=== PATIENT | female | born 1955 | race Caucasian/White ===

== ENCOUNTER 2018-01-17 20:52 | Observation (INO) | payer MEDICARE, OTHER ==
[2018-01-17 21:37] LABS: Hematocrit 34 % (35-47); Hemoglobin 11.5 g/dl (12.0-16.0); Mean Corpuscular HGB Conc 34 g/dl (31-36); Mean Corpuscular Hemoglobin 30 pg (27-31); Mean Corpuscular Volume 89 fL (80-97); Mean Platelet Volume 6.7 um3 (7.4-10.4); Platelet Count 336 10^3/ul (150-450); Red Blood Count 3.82 10^6/ul (4.0-5.4); Red Cell Distribution Width 15 % (10.5-15); White Blood Count 9.3 10^3/ul (3.5-10.8)
[2018-01-17 21:41] LABS: ABS Basophils 0.1 10^3/ul (0-0.2); ABS Eosinophils 0.1 10^3/ul (0-0.6); ABS Lymphocytes 2.8 10^3/ul (1.0-4.8); ABS Monocytes 0.9 10^3/ul (0-0.8); ABS Neutrophils 5.4 10^3/ul (1.5-7.7); ABS Nucleated RBC 0 10^3/ul; Eosinophil % 1.5 % (0-6); Nucleated Red Blood Cells % 0
[2018-01-17 21:55] LABS: EGFR Non-African American 53.9 (>60)
[2018-01-17 23:04] LABS: Urine Appearance Cloudy; Urine Blood Negative (Negative); Urine Color Yellow; Urine Ketones Negative (Negative); Urine Protein Negative (Negative); Urine Specific Gravity 1.017 (1.010-1.030); Urine Urobilinogen Negative (Negative)
[2018-01-18] MEDS ORDERED: Acetaminophen TAB* 325 MG PO ONE (04:44)
[2018-01-18] MEDS ORDERED: Amoxicillin/Clavulanate TAB* 875 MG PO ONE (05:56)
--- NOTE | 2018-01-18 06:54 | ED ---
Caitlin Loyd Emily, scribed for Nas Ramires MD on 01/17/18 at 2214 . 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 The patient rates the pain 7/10 in severity. Symptoms aggravated by nothing. Symptoms alleviated by nothing. Patient reports abd pain. Pt states that she plans to shoot her neighbor in the foot, and then straight through the heart. - History Of Current Complaint Chief Complaint: EDMentalHealth Time Seen by Provider: 01/17/18 21:13 Hx Obtained From: Patient ?: No Onset/Duration: Sudden Onset Timing: Constant Severity Initially: Mild Severity Currently: Mild Aggravating Factor(s): Nothing Alleviating Factor(s): Nothing Related History: Positive For: Prior Psychiatric Issues Has Homicidal: Reports: Thoughts, With A Plan - Allergies/Home Medications Allergies/Adverse Reactions: Allergies Allergy/AdvReac Type Severity Reaction Status Date / Time chlorpromazine Allergy Hives Verified 01/17/18 22:04 [From Thorazine] shellfish derived Allergy Difficulty Verified 01/17/18 22:04 Breathing/Wheezing Home Medications: Home Medications Acetaminophen TAB* [Tylenol TAB*] 650 mg PO Q4H PRN 01/17/18 [History Confirmed 01/17/18] Albuterol HFA INHALER* [Ventolin HFA Inhaler*] 2 puff INH Q4H PRN 01/17/18 [ History Confirmed 01/17/18] Aspirin EC TAB* [Ecotrin EC Low Dose 81 MG*] 81 mg PO DAILY 01/17/18 [History Confirmed 01/17/18] Atorvastatin* [Lipitor*] 40 mg PO DAILY 01/17/18 [History Confirmed 01/17/18] Calcium Carbonate/Vitamin D3 [Calcium 600+D High Potenc] 1 tab PO BID 01/17/18 [ History Confirmed 01/17/18] Docusate CAP* [Colace Cap*] 100 mg PO BEDTIME 01/17/18 [History Confirmed ] Ergocalciferol CAP* [Drisdol CAP*] 50,000 unit PO Q7D 01/17/18 [History Confirmed 01/17/18] Gabapentin CAP(*) [Neurontin 300 CAP(*)] 600 mg PO BID 01/17/18 [History Confirmed 01/17/18] Gabapentin CAP(*) [Neurontin 300 CAP(*)] 900 mg PO BEDTIME 01/17/18 [History Confirmed 01/17/18] Methocarbamol TAB* [Robaxin 500 MG TAB*] 1,500 mg PO TID PRN 01/17/18 [History Confirmed 01/17/18] [place]-3 Fatty Acids (Nf) [Fish Oil (NF)] 1,000 mg PO BID 01/17/18 [History Confirmed 01/17/18] Omeprazole CAP* [Prilosec CAP* 20 MG] 40 mg PO QAM 01/17/18 [History Confirmed 01/17/18] Polyethylene Glycol 3350* [Miralax*] 17 gm PO DAILY PRN 01/17/18 [History Confirmed 01/17/18] Prazosin CAP* [Minipress CAP*] 3 mg PO BEDTIME 01/17/18 [History Confirmed 01/17] Ranitidine TAB (NF) [Zantac TAB (NF)] 150 mg PO BEDTIME 01/17/18 [History Confirmed 01/17/18] Tiotropium CAP.INH* [Spiriva CAP.INH*] 1 cap.inh INH DAILY 01/17/18 [History Confirmed 01/17/18] amLODIPine TAB* [Norvasc 5 mg TAB*] 10 mg PO DAILY 01/17/18 [History Confirmed 01/17/18] cloNIDine TAB* [Catapres 0.1 MG TAB*] 0.1 mg PO Q8H PRN 01/17/18 [History Confirmed 01/17/18] glipiZIDE TAB* [Glucotrol TAB*] 20 mg PO BID 01/17/18 [History Confirmed ] hydrOXYzine HCL TAB* [Atarax TAB 50 MG *] 50 mg PO TID PRN MDD 3 tabs 01/17/18 [ History Confirmed 01/17/18] PMH/Surg Hx/FS Hx/Imm Hx Previously Healthy: No Cardiovascular History: Reports: Hx Hypertension Respiratory History: Reports: Hx Chronic Obstructive Pulmonary Disease (COPD) Psychiatric History: Reports: Hx Anxiety, Hx Depression - Surgical History Surgery Procedure, Year, and Place: cholecystectomy Infectious Disease History: No Infectious Disease History: Denies: Traveled Outside the [place] in Last 30 Days - Family History Known Family History: Positive: Cardiac Disease, Hypertension - Social History Occupation: Disabled Lives: With Family Alcohol Use: None Hx Substance Use: Yes Substance Use Type: Reports: Marijuana Substance Use Comment - Amount & Last Used: one month Hx Tobacco Use: Yes Smoking Status (MU): Heavy Every Day Tobacco Smoker Review of Systems Positive: Abdominal Pain Psychological: Other - Positive HI All Other Systems Reviewed And Are Negative: Yes Physical Exam - Summary Physical Exam Summary: VITAL SIGNS: Reviewed. GENERAL: ~Patient is a well-developed and nourished female who is lying comfortable in the stretcher. Patient is not in any acute respiratory distress. HEAD AND FACE: No signs of trauma. No ecchymosis, hematomas or skull depressions. No sinus tenderness. EYES: PERRLA, EOMI x 2, No injected conjunctiva, no nystagmus. EARS: Hearing grossly intact. Ear canals and tympanic membranes are within normal limits. MOUTH: Oropharynx within normal limits. NECK: Supple, trachea is midline, no adenopathy, no JVD, no carotid bruit, no c- spine tenderness, neck with full ROM. CHEST: Symmetric, no tenderness at palpation LUNGS: Clear to auscultation bilaterally. No wheezing or crackles. CVS: Regular rate and rhythm, S1 and S2 present, no murmurs or gallops appreciated. ABDOMEN: Soft, non-tender. No signs of distention. No rebound no guarding, and no masses palpated. Bowel sounds are normal. EXTREMITIES: FROM in all major joints, no edema, no cyanosis or clubbing. NEURO: Alert and oriented x 3. No acute neurological deficits. Speech is normal and follows commands. SKIN: Dry and warm Triage Information Reviewed: Yes Vital Signs On Initial Exam: Initial Vitals Temp Pulse Resp BP Pulse Ox 98.2 F 103 20 142/76 96 01/17/18 20:57 01/17/18 20:57 01/17/18 20:57 01/17/18 20:57 01/17/18 20:57 Vital Signs Reviewed: Yes Diagnostics - Vital Signs Vital Signs Temp Pulse Resp BP Pulse Ox 01/17/18 20:57 98.2 F 103 20 142/76 96 - Laboratory Lab Results: Lab Results 01/17/18 01/17/18 Range/Units 21:31 21:31 WBC 9.3 (3.5-10.8) 10^3/ul RBC 3.82 L (4.0-5.4) 10^6/ul Hgb 11.5 L (12.0-16.0) g/dl Hct 34 L (35-47) % MCV 89 (80-97) fL MCH 30 (27-31) pg MCHC 34 (31-36) g/dl RDW 15 (10.5-15) % Plt Count 336 (150-450) 10^3/ul MPV 6.7 L (7.4-10.4) um3 Neut % (Auto) 58.0 (38-83) % Lymph % (Auto) 30.0 (25-47) % [place] % (Auto) 9.6 H (0-7) % Eos % (Auto) 1.5 (0-6) % Baso % (Auto) 0.9 (0-2) % Absolute Neuts (auto) 5.4 (1.5-7.7) 10^3/ul Absolute Lymphs (auto) 2.8 (1.0-4.8) 10^3/ul Absolute Monos (auto) 0.9 H (0-0.8) 10^3/ul Absolute Eos (auto) 0.1 (0-0.6) 10^3/ul Absolute Basos (auto) 0.1 (0-0.2) 10^3/ul Absolute Nucleated RBC 0 10^3/ul Nucleated RBC % 0 Sodium 139 (139-145) mmol/L Potassium 3.4 L (3.5-5.0) mmol/L Chloride 103 (101-111) mmol/L Carbon Dioxide 26 (22-32) mmol/L Anion Gap 10 (2-11) mmol/L BUN 17 (6-24) mg/dL Creatinine 1.03 H (0.51-0.95) mg/dL Est GFR ( Amer) 69.4 (>60) Est GFR (Non-Af Amer) 53.9 (>60) BUN/Creatinine Ratio 16.5 (8-20) Glucose 151 H (70-100) mg/dL Calcium 10.0 (8.6-10.3) mg/dL Total Bilirubin 0.30 (0.2-1.0) mg/dL AST 30 (13-39) U/L ALT 31 (7-52) U/L Alkaline Phosphatase 81 (34-104) U/L Total Protein 7.1 (6.4-8.9) g/dL Albumin 3.9 (3.2-5.2) g/dL Globulin 3.2 (2-4) g/dL Albumin/Globulin Ratio 1.2 (1-3) TSH Pending Salicylates < 2.50 (<30) mg/dL Acetaminophen < 15 mcg/mL Serum Alcohol < 10 (<10) mg/dL Result Diagrams: 01/17/18 21:31 01/17/18 21:31 Lab Statement: Any lab studies that have been ordered have been reviewed, and results considered in the medical decision making process. - CT CT Abdomen and Pelvis CT Interpretation Completed By: Radiologist - Abdomen and Pelvis CT reveals, per radiologist, haziness in the fat surrounding the duodenum suggests duodenitis. ED physician has reviewed this radiology report. Re-Evaluation - Re-Evaluation First Eval Re-Evaluation Time: 04:42 Change: Unchanged Comment: The patient is now reporting diffuse abd pain (that began 2 weeks ago) . Upon exam, the abdomen is distended and diffusely tender. No other symptoms reported at this time. 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 Pt also reports diffuse abd pain. Abdomen and Pelvis CT reveals, per radiologist, haziness in the fat surrounding the duodenum suggests duodenitis. The patient will recieve Augmentin for this. The patient will be signed out to Dr. Marie upon shift change pending MHE. The patient is agreeable with this plan. - Differential Dx/Clinical Impression Provider Diagnosis: Duodenitis, Psychosis Discharge - Sign-Out/Discharge Documenting (check all that apply): Sign-Out Patient Signing out patient TO: Ankit Marie - Sign out upon shift change pending MHE - Discharge Plan Condition: Stable Referrals: Galen Washington MD [Primary Care Provider] - The documentation as recorded by the Caitlin cazares Emily accurately reflects the service I personally performed and the decisions made by me, Nas Ramires MD.
--- NOTE | 2018-01-18 07:48 | RAD ---
CLINICAL HISTORY: Abdominal pain COMPARISON: None TECHNIQUE: Multiple contiguous axial CT scans were obtained of the abdomen and pelvis, without intravenous contrast enhancement. Coronal and sagittal multiplanar reformations are submitted for review. Oral contrast was not administered. FINDINGS: The study is limited by the lack of intravenous contrast. This limits evaluation of the solid organs and vasculature. LUNG BASES: There is a calcified granuloma of the left lower lobe. LIVER: The liver is diffusely low in attenuation compared to the spleen. There are no focal hepatic parenchymal masses. The liver measures 20 cm in long axis. BILE DUCTS: There is no intrahepatic or extrahepatic biliary dilatation. GALLBLADDER: The gallbladder is not visualized. Surgical clips are noted in the gallbladder fossa. PANCREAS: There is mild stranding of the fat along the pancreatic head and duodenum. SPLEEN: Normal in size and appearance. UPPER GI TRACT: Evaluation of the gastrointestinal tract is limited by incomplete gastric distention. There is mild stranding of the fat along the second and third stages of the duodenum SMALL BOWEL AND MESENTERY: The small bowel is normal in contour, course, and caliber. There is no obstruction or dilatation. COLON: The colon is normal in contour, course, caliber. There is no pericolonic inflammatory change. The appendix is not visualized. There is postsurgical change to the proximal colon. ADRENALS: Normal bilaterally. KIDNEYS: The kidneys are normal in shape, size, contour, and axis. There is no hydronephrosis or nephrolithiasis. BLADDER: The bladder is smooth in contour. PELVIC ORGANS: The uterus and adnexa are grossly normal for technique. AORTA: There is calcific atherosclerotic disease of the abdominal aorta and its branches, without aneurysmal dilatation IVC: Unremarkable LYMPH NODES: There is no lymphadenopathy by size criteria. ABDOMINAL WALL: There is no evidence for abdominal wall hernia. BONES AND SOFT TISSUES: There are mild diffuse degenerative changes. OTHER: None IMPRESSION: 1. MILD INFLAMMATORY CHANGE ALONG THE SECOND AND THIRD STAGES OF THE DUODENUM AND PANCREATIC HEAD. THE DIFFERENTIAL INCLUDES PRIMARY INFECTIOUS OR INFLAMMATORY PROCESS OF THE DUODENUM, THOUGH EARLY PANCREATITIS MAY GIVE A SIMILAR APPEARANCE. 2. HEPATOMEGALY WITH FATTY INFILTRATION OF THE LIVER.
[2018-01-18] MEDS ORDERED: oxyCODONE TAB* 5 MG TAB PO ONE (08:19)
--- NOTE | 2018-01-18 08:26 | PN ---
ED Flex Patient Progress Note Subjective: This is a 62 year-old F who is pending admission to [facility] secondary to ____SI/HI . Pt reports ab pain w/ "queesiness". Her lipase was found to be elevated at 140 and she had duodenal inflammation on CT (per [facility]). Final read finds same findings, stating this could be inflammation, infection or early signs of pancreatitis. Pt admits to a h/o pancreatitis as well as colon CA w/ partial resection. Denies vomiting, diarrhea. Had a constipated BM last night and drank mild which "tasted good". Objective: Vitals: Most recent vital signs documented below. Lying on stretcher, Alert and oriented x3. Heart: rrr S1/S2 Lungs: CTA, breathing easily AB: distended, diffuse TTP, no rebounding Integ: well defined purpuric area over ab just Rt of umbilicus Assessment: 1) SI/HI 2) Ab pain Plan: 1) Pending psychiatric admit. will follow up daily _while in ED____. 2) Duodenitis w/ pancreatic inflammation at the head. Infection vs. pancreatitis. Will repeat labs. Vitals are stable this morning and w/o fever. Upon recheck she is sleeping after eating all of her breakfast w/o difficulty per nursing. Discussed w/ Dr. Marie. Vital Signs Temp Pulse Resp BP Pulse Ox 98.1 F 91 20 163/80 96 01/17/18 23:31 01/17/18 23:31 01/17/18 23:31 01/17/18 23:31 01/17/18 23:31 Lab Results - Entire Visit 01/17/18 01/17/18 01/17/18 22:50 22:50 21:31 WBC RBC Hgb Hct MCV MCH MCHC RDW Plt Count MPV Neut % (Auto) Lymph % (Auto) [place] % (Auto) Eos % (Auto) Baso % (Auto) Absolute Neuts (auto) Absolute Lymphs (auto) Absolute Monos (auto) Absolute Eos (auto) Absolute Basos (auto) Absolute Nucleated RBC Nucleated RBC % Sodium 139 Potassium 3.4 L Chloride 103 Carbon Dioxide 26 Anion Gap 10 BUN 17 Creatinine 1.03 H Est GFR ( Amer) 69.4 Est GFR (Non-Af Amer) 53.9 BUN/Creatinine Ratio 16.5 Glucose 151 H Calcium 10.0 Total Bilirubin 0.30 AST 30 ALT 31 Alkaline Phosphatase 81 Total Protein 7.1 Albumin 3.9 Globulin 3.2 Albumin/Globulin Ratio 1.2 Amylase 58 Lipase 140 H TSH 1.73 Urine Color Yellow Urine Appearance Cloudy Urine pH 6.0 Ur Specific [place] 1.017 Urine Protein Negative Urine Ketones Negative Urine Blood Negative Urine Nitrate Negative Urine Bilirubin Negative Urine Urobilinogen Negative Ur Leukocyte Esterase Negative Urine Glucose Negative Salicylates < 2.50 Urine Opiates Screen None detected Acetaminophen < 15 Ur Barbiturates Screen None detected Ur Phencyclidine Scrn None detected Ur Amphetamines Screen None detected U Benzodiazepines Scrn None detected Urine Cocaine Screen None detected U Cannabinoids Screen Presumptive positive A Serum Alcohol < 10 01/17/18 21:31 WBC 9.3 RBC 3.82 L Hgb 11.5 L Hct 34 L MCV 89 MCH 30 MCHC 34 RDW 15 Plt Count 336 MPV 6.7 L Neut % (Auto) 58.0 Lymph % (Auto) 30.0 [place] % (Auto) 9.6 H Eos % (Auto) 1.5 Baso % (Auto) 0.9 Absolute Neuts (auto) 5.4 Absolute Lymphs (auto) 2.8 Absolute Monos (auto) 0.9 H Absolute Eos (auto) 0.1 Absolute Basos (auto) 0.1 Absolute Nucleated RBC 0 Nucleated RBC % 0 Sodium Potassium Chloride Carbon Dioxide Anion Gap BUN Creatinine Est GFR ( Amer) Est GFR (Non-Af Amer) BUN/Creatinine Ratio Glucose Calcium Total Bilirubin AST ALT Alkaline Phosphatase Total Protein Albumin Globulin Albumin/Globulin Ratio Amylase Lipase TSH Urine Color Urine Appearance Urine pH Ur Specific [place] Urine Protein Urine Ketones Urine Blood Urine Nitrate Urine Bilirubin Urine Urobilinogen Ur Leukocyte Esterase Urine Glucose Salicylates Urine Opiates Screen Acetaminophen Ur Barbiturates Screen Ur Phencyclidine Scrn Ur Amphetamines Screen U Benzodiazepines Scrn Urine Cocaine Screen U Cannabinoids Screen Serum Alcohol
[2018-01-18 08:47] LABS: ABS Basophils 0.1 10^3/ul (0-0.2); ABS Eosinophils 0.2 10^3/ul (0-0.6); ABS Lymphocytes 1.6 10^3/ul (1.0-4.8); ABS Monocytes 0.6 10^3/ul (0-0.8); ABS Neutrophils 5.7 10^3/ul (1.5-7.7); ABS Nucleated RBC 0 10^3/ul; Eosinophil % 2.3 % (0-6); Hematocrit 34 % (35-47); Hemoglobin 11.6 g/dl (12.0-16.0); Lymphocyte % 19.1 % (25-47); Mean Corpuscular HGB Conc 34 g/dl (31-36); Mean Corpuscular Hemoglobin 30 pg (27-31); Mean Corpuscular Volume 89 fL (80-97); Mean Platelet Volume 6.9 um3 (7.4-10.4); Nucleated Red Blood Cells % 0; Platelet Count 336 10^3/ul (150-450); Red Blood Count 3.87 10^6/ul (4.0-5.4); Red Cell Distribution Width 15 % (10.5-15); White Blood Count 8.2 10^3/ul (3.5-10.8)
[2018-01-18] MEDS ORDERED: Aspirin 81 mg CHEW TAB* 81 MG TAB.CHEW PO ONE (11:16)
--- NOTE | 2018-01-18 12:09 | RAD ---
INDICATION: Chest pain COMPARISON: None TECHNIQUE: Single AP portable view of the chest was obtained. FINDINGS: Image quality is compromised due to the relative inferiority of a portable chest x-ray. The heart and mediastinum exhibit normal size and contour. The lungs are grossly clear. There is no evidence of a large pleural effusion. Visualized bones are normal for the patient's age. IMPRESSION: No radiographic evidence for acute cardiopulmonary abnormality on this portable chest x-ray.
[2018-01-18 12:35] LABS: INR 0.86 (0.77-1.02)
[2018-01-18] MEDS ORDERED: Iohexol 350* (CONTRAST) 500 ML MDV IV ONE (13:25)
[2018-01-18] MEDS ORDERED: Iodixanol* (CONTRAST) 320 MG/ML 100 ML SDV IV ONE (14:10)
[2018-01-18] MEDS ORDERED: LORazepam INJ* 2 MG/ML 1 ML VIAL IV PUSH ONE ×2 (14:26→15:24)
[2018-01-18] MEDS ORDERED: Nitroglycerin TAB 0.4 MG* 0.4 MG TAB SL ONE (14:55)
[2018-01-18] MEDS ORDERED: LORazepam INJ* 2 MG/ML 1 ML VIAL IVPB ONE (15:00)
--- NOTE | 2018-01-18 15:37 | RAD ---
Indication: Chest pain, neck pain. Contrast: Administered 80.1 ml of VISAPAQUE 320 mg/ml CTA of the chest performed after IV contrast administration. Coronal and sagittal reconstructed images were obtained. The origins of the great vessels are unremarkable. Specifically the left subclavian artery is patent. The aorta demonstrates no evidence of aortic dissection. Atherosclerosis is noted. No filling defects in the pulmonary arteries are noted to suggest pulmonary embolus. No significant mediastinal or hilar adenopathy is noted. The heart demonstrates no pericardial effusion. The trachea and major bronchi appear patent. The lung olsen demonstrate no evidence of alveolar consolidation. There is some scarring noted in the right middle lobe. No pleural fluid is identified. The liver demonstrates diffuse decrease in density consistent with hepatic steatosis. The visualized adrenal glands, left kidney spleen and pancreas are grossly unremarkable although limited in evaluation. The axilla and breast demonstrates no evidence of abnormal masses. IMPRESSION: No evidence of thoracic aortic dissection or aneurysmal dilatation. The left subclavian artery is widely patent. No pulmonary embolus is noted. Scarring in the right middle lobe. Likely hepatic steatosis.
[2018-01-18] MEDS ORDERED: Albuterol 2.5 MG/3 ML NEB.SOL* (0.083%) INH PRN (15:47)
[2018-01-18] MEDS ORDERED: Al Hydrox/Mg Hydrox/Simet LIQ* 30 ML UDC PO PRN (15:47)
[2018-01-18] MEDS ORDERED: Morphine VIAL* 4 MG/ML VIAL (1 ml vial) IV PRN (15:47)
[2018-01-18] MEDS ORDERED: Ondansetron 40 MG VIAL* 2 MG/ML 20 ML VIAL IV PRN (15:47)
[2018-01-18] MEDS ORDERED: Magnesium Hydroxide LIQ* 30 ML UDC PO PRN (15:47)
[2018-01-18] MEDS ORDERED: Polyethylene Glycol 3350* 17 GM PACKET PO PRN (15:56)
[2018-01-18] MEDS ORDERED: Albuterol HFA INHALER* 8 gm MDI INH PRN (15:56)
[2018-01-18] MEDS ORDERED: Dextrose 50% Syringe 50 ML* 25 GM/50 ML SYRINGE IV PUSH PRN (15:58)
[2018-01-18] MEDS: NS 0.9% 1000 ML* 1,000 ML IV SCH (17:26)
[2018-01-18] MEDS: Nitroglycerin TAB 0.4 MG* 0.4 MG TAB SL PRN ×2 (18:15→18:25)
[2018-01-18] MEDS: Amoxicillin/Clavulanate TAB* 875 MG PO SCH ×2 (18:31→20:38)
[2018-01-18] MEDS: hydrOXYzine HCL TAB* 50 MG PO PRN (18:31)
[2018-01-18] MEDS: Acetaminophen TAB* 325 MG PO PRN (18:31)
[2018-01-18] MEDS: Insulin LISPRO* 1 UNITS UNIT SUBCUT SCH ×2 (18:39→20:39)
[2018-01-18] MEDS: cloNIDine TAB* 0.1 MG PO PRN (20:14)
[2018-01-18] MEDS: Docusate CAP* 100 MG PO SCH (20:38)
[2018-01-18] MEDS: Prazosin CAP* 1 MG PO SCH (20:38)
[2018-01-18] MEDS: Gabapentin CAP(*) 300 MG PO SCH (20:38)
[2018-01-18] MEDS: Heparin VIAL(*) 5000 UNITS/ML VIAL (FIVE THOUSAND) SUBCUT SCH (20:40)
--- NOTE | 2018-01-18 20:54 | HP ---
CC: Galen Washington MD * ADMISSION HISTORY AND PHYSICAL: DATE OF ADMISSION: 01/18/18 PATIENT OF: Alison Marvin MD PRIMARY CARE PHYSICIAN: Galen Washington MD, I assume from [facility]. ATTENDING HOSPITALIST: Dr. Alison Marvin.* (DICTATED BY YOHAN MCCLURE) CHIEF COMPLAINT: 1. Suicidal ideation. 2. Chest pain. HISTORY OF PRESENT ILLNESS: Mrs. Rodriguez is a 62-year-old female who carries past medical history significant for hypertension, diabetes mellitus, and psychiatric disorder who presented to the emergency room at [facility] last night with complaints of suicidal ideation. The patient notes that she had the thought of hurting her neighbor and she was planned to "shoot her" in the foot and then straight through her heart and then she also threatened to hurt herself. She presented with a known psychiatric history as well as anxiety and depression for which she has been on medication in the past. She was awaiting mental health evaluation in emergency room until this morning when she suddenly developed acute onset of chest pain. She described it as sharp and dull pain localized to her mid sternum, appears to be worse with deep inspiration and sometimes radiate to her back, but denies any dizziness, headache, weakness, diaphoresis, or palpitation. She has never had any similar chest pain in the past. She had laboratory workup done in the ED that showed elevated troponin of 0.12 on the second draw after it was 0.01 on the first 2 hours earlier. Her EKG showed no significant ST changes. She did not complain of any shortness of breath; however, a CTA of the chest was done to rule out any possibility of pulmonary embolism and thankfully was negative. She was evaluated by the hospitalist team and she continued to have some intermittent chest pain, but described as less severe at this point. She has never had any cardiac history before. Most of her records were done at [facility] and she actually resides in [place] and comes to [facility] in [place] to get medical care since it is "a better hospital." She also has a history of COPD since she has been a smoker with 2 packs per day for a long time for which she takes nebulizers at home. Given her acute onset of chest pain and elevated troponin, we were asked to evaluate the patient for possible admission to telemetry for observation and to rule out acute coronary syndrome. PAST MEDICAL HISTORY: As mentioned above, significant for: 1. Hypertension. 2. COPD. 3. Anxiety and depression. 4. Diabetes mellitus. 5. GERD. 6. Obesity. 7. Chronic constipation. PAST SURGICAL HISTORY: Significant for: 1. Cholecystectomy. 2. She also has a history of colon cancer for which she had sigmoid colectomy with colostomy and then followed by colostomy reversal. CURRENT MEDICATIONS: Her medications at home include: 1. Tylenol 650 mg p.o. q.4 hours as needed for pain. 2. Ventolin MDI inhaler 2 puffs q.4 hours as needed for shortness of breath. 3. Norvasc 10 mg p.o. daily. 4. Aspirin 81 mg p.o. daily. 5. Lipitor 40 mg p.o. daily. 6. Calcium carbonate with vitamin C 1 tablet p.o. b.i.d. 7. Catapres 0.1 mg p.o. q.8 hours. 8. Colace 100 mg p.o. b.i.d. 9. Drisdol 50,000 units p.o. daily. 10. Gabapentin 900 mg p.o. q.h.s. 11. Gabapentin 600 mg p.o. b.i.d. 12. Glipizide 20 mg p.o. b.i.d. 13. Atarax 50 mg p.o. t.i.d. 14. Robaxin 1500 mg p.o. t.i.d. 15. [place]-3 fatty acids 1000 mg p.o. b.i.d. 16. Prilosec 40 mg p.o. q.a.m. 17. MiraLAX 17 g p.o. daily. 18. Minipress 3 mg p.o. q.h.s. 19. Zantac 150 mg p.o. q.h.s. 20. Spiriva inhaler 18 mcg 1 inhalation daily. ALLERGIES: She is allergic to SHELLFISH and . FAMILY HISTORY: She reports family history of MD in her maternal side as well as history of cancer in her dad, not sure what type. SOCIAL HISTORY: The patient is a current smoker, smokes 2 packs per day. Denies alcohol intake and she admits smoking marijuana on occasions. Healthcare proxy is carried by her friend, Celia Martinez. REVIEW OF SYSTEMS: A 14-point review of systems was obtained and all pertinent positive and negative findings were mentioned in the HPI, otherwise all other systems were negative. PHYSICAL EXAMINATION GENERAL: She is morbidly obese upper middle-aged female in no acute distress or discomfort at the time of admission. VITAL SIGNS: Vitals revealed blood pressure of 175/114, pulse of 87, respirations of 20, O2 sat of 96% on room air, and temperature of 99.4. HEENT: Head is normocephalic, atraumatic. Sclerae anicteric. PERRLA. EOMs intact. Oropharynx is pink and moist. NECK: Supple. Trachea midline. No cervical adenopathy, thyromegaly, or JVD. LUNGS: Clear to auscultation bilaterally. There are decreased breath sounds throughout but no wheezing or rhonchi noted. HEART: Regular rate and rhythm. Normal S1 and S2 without rubs, murmurs, or gallops. BACK: With normal curvature. No CVA tenderness. ABDOMEN: Round and obese. There is no tenderness, distention. No hernias, masses, or hepatosplenomegaly. There is a left lower quadrant scar from prior colostomy that appears to be well healed as well as a lower midline incision that is well healed. RECTAL: Exam deferred at this time. EXTREMITIES: Without cyanosis, clubbing, or edema. NEUROLOGIC: Grossly intact. She is alert, oriented and cooperative. She expressed normal mood. No flat affect and she expressed no desire to hurt self anymore. Her tongue is midline and sensory neuro is grossly intact. DIAGNOSTIC STUDIES/LAB DATA: CBC with white count of 8000, hemoglobin 11.6, hematocrit 34, and platelets of 336. Her D-dimer was elevated at 560. Chemistry panel with sodium of 138, potassium 3.5, chloride 106, BUN 16, creatinine 0.9, glucose of 220. Lactic acid 1.1. Magnesium 2.0. LFTs within normal limits. Lipase slightly elevated at 87 and her serum alcohol is less than 10. C-reactive protein at 14 and troponin first draw is 0.01, which is rapidly elevated at 0.12 and await the third drawing in another half an hour. ACCESSORY DIAGNOSTIC DATA: As mentioned above, the patient had abdominal CT scan earlier this morning with no evidence of free air, colitis; however, it showed some duodenal inflammatory changes. CTA of the chest ruled out possibility of any PE. IMPRESSION: A 62-year-old female with past medical history significant for hypertension, hyperlipidemia, diabetes mellitus, anxiety and depression, tobacco abuse as well as substance abuse in the past who was awaiting mental health evaluation in the emergency room when she suddenly developed a chest pain with elevated troponin and will be admitted for observation to rule out acute coronary syndrome. ASSESSMENT AND PLAN: 1. Chest pain. The patient will be admitted to the telemetry unit for observation and for serial troponin. We will obtain repeat EKG in the morning as well as a stress test. The patient has never had any history of myocardial infarction in the past, never had any echocardiogram or a stress test done. She had an EKG done occasionally at the [facility] in [place], but reports are not available at the time of dictation. She appears to be clinically stable and we will keep close monitor of her. 2. Hypertension. We will continue her home medication. 3. Chronic obstructive pulmonary disease. We will maintain her on albuterol inhaler as well as nebulizer and continue her Spiriva as well. 4. Diabetes mellitus. We will hold her glipizide and start her on lispro per sliding scale with meals and at night. 5. Suicidal ideation. I have reviewed that and talked to the patient who expressed no desire to hurt self or others at this point. I did add a consult request for the psychiatric evaluation and I did call the psych unit to confirm that the patient will be seen by a provider and for the time being we will provide her with a private room with one-to-one observation given her psychiatric history. We will also maintain her on her lorazepam. 6. Hyperlipidemia: We will continue her Lipitor. 7. DVT prophylaxis: The patient is at high risk. We will keep her on subcu heparin. 8. Code status: She is a full code. TIME SPENT: I spent 60 minutes admitting this patient with greater than 50% spent on [id number] conversation obtaining history, performing exam, and explaining plan of care. I have discussed the case with Dr. Marvin who agreed to the plan. YOHAN MCCLURE [id number]/[facility] #: [id number] KATERINE
[2018-01-18] MEDS ORDERED: Gabapentin CAP(*) 300 MG PO SCH (21:00)
[2018-01-18] MEDS ORDERED: hydrALAZINE IV* 20 MG/ML VIAL IV SLOW PU PRN (21:18)
[2018-01-19] MEDS: NS 0.9% 1000 ML* 1,000 ML IV SCH (03:19)
[2018-01-19 05:47] LABS: ABS Basophils 0 10^3/ul (0-0.2); ABS Eosinophils 0.1 10^3/ul (0-0.6); ABS Lymphocytes 2.1 10^3/ul (1.0-4.8); ABS Monocytes 0.7 10^3/ul (0-0.8); ABS Nucleated RBC 0 10^3/ul; Eosinophil % 1.1 % (0-6); Hematocrit 33 % (35-47); Hemoglobin 11.3 g/dl (12.0-16.0); Lymphocyte % 26.6 % (25-47); Mean Corpuscular HGB Conc 34 g/dl (31-36); Mean Corpuscular Hemoglobin 30 pg (27-31); Mean Corpuscular Volume 89 fL (80-97); Nucleated Red Blood Cells % 0.1; Platelet Count 315 10^3/ul (150-450); Red Blood Count 3.75 10^6/ul (4.0-5.4); Red Cell Distribution Width 15 % (10.5-15); White Blood Count 7.9 10^3/ul (3.5-10.8)
[2018-01-19] MEDS: Heparin VIAL(*) 5000 UNITS/ML VIAL (FIVE THOUSAND) SUBCUT SCH ×4 (06:03→21:03)
[2018-01-19 06:06] LABS: EGFR Non-African American 96.9 (>60)
[2018-01-19] MEDS: Tiotropium CAP.INH* CAP.INH/18 MCG (USE ORDER SET !) INH SCH (07:50)
[2018-01-19] MEDS ORDERED: Potassium Chlor TAB* 20 MEQ TAB.ER PO ONE (07:50)
[2018-01-19] MEDS: Omeprazole CAP* 20 MG PO SCH (07:51)
[2018-01-19] MEDS: hydrOXYzine HCL TAB* 50 MG PO PRN ×2 (07:52→14:01)
[2018-01-19] MEDS: Nitroglycerin TAB 0.4 MG* 0.4 MG TAB SL PRN (07:52)
[2018-01-19] MEDS: Amoxicillin/Clavulanate TAB* 875 MG PO SCH ×2 (07:52→21:03)
[2018-01-19] MEDS: amLODIPine TAB* 5 MG PO SCH (07:52)
[2018-01-19] MEDS: Atorvastatin* 40 MG TAB PO SCH (07:52)
[2018-01-19] MEDS: Acetaminophen TAB* 325 MG PO PRN ×3 (07:52→18:22)
[2018-01-19] MEDS: Aspirin EC TAB* 81 MG TAB.EC PO SCH (07:52)
[2018-01-19] MEDS: Gabapentin CAP(*) 300 MG PO SCH ×3 (08:33→21:02)
[2018-01-19] MEDS: Insulin LISPRO* 1 UNITS UNIT SUBCUT SCH ×4 (08:34→20:57)
[2018-01-19] MEDS ORDERED: Spiriva Inhaler DEVICE* 1 EACH DEVICE INH ONE (09:00)
[2018-01-19] MEDS ORDERED: Regadenoson* 0.4 MG/5 ML SYRINGE ONE (10:10)
--- NOTE | 2018-01-19 12:02 | RAD ---
Edited for charges. INDICATION: Chest pain, shortness of breath, diabetes, hypertension, obesity. COMPARISON: No relevant prior exams available on the [facility] [place] for comparison. TECHNIQUE: 10.800 mCi of Tc-99m Myoview were administered IV. SPECT images of the heart were obtained. Later on the same day. Under the direction of Dr. Viramontes, the patient was given an IV injection of a pharmacologic stress agent. Subsequently, the patient was given an IV injection of 25.400 mCi Tc-99m Myoview. SPECT images of the heart were obtained and a gated wall motion study was performed. FINDINGS: Gated wall motion images were obtained at stress and demonstrate wall motion to be within normal limits. The calculated left ventricular ejection fraction is 61 % at stress. Estimated LEFT ventricular end diastolic volume is 80 mL. TID 1.15. Based on review of the attenuation corrected and non corrected images the distribution of radiopharmaceutical within the myocardium on the stress and rest images is within normal limits. No fixed or reversible regions of hypoperfusion evident. IMPRESSION: 1. No evidence for stress induced myocardial ischemia or presence of an infarct. 2. Normal left ventricular wall motion and ejection fraction. ASSESSMENT: Low risk based on nuclear portion. Based on imaging criteria from ACC/AHA 2002 Guideline Update for the Management of Patients With Chronic Stable Angina Table 23. Noninvasive Risk Stratification. MTDD
--- NOTE | 2018-01-19 12:57 | PN ---
Subjective Date of Service: 01/19/18 Interval History: Patient reports she understands her conversation with the psychiatrist. She denies suicidal ideation. Currently she reports her abdomen is hurting her but relates it secondary to not eating all day d/t the stress test. She reports she was hospitalized with pancreatitis within the last year and has had some bouts of chronic pancreatitis. She denies any recent hx of ETOH abuse but states she use to drink heavily 30 years ago. She reports epigastric to LUQ intermittent colicky diffuse pain. No Nausea. Denies bloating, reports normal consistency bowel movement reporting dark stool today with streaks of "blood". Denies hx of bloody stools. No nausea. Reports she feels hungry. Objective Active Medications: Acetaminophen (Tylenol Tab*) 650 mg PO Q4H PRN PRN Reason: FEVER/PAIN Last Admin: 01/19/18 07:52 Dose: 650 mg Al Hydrox/Mg Hydrox/Simethicone (Maalox Plus*) 30 ml PO Q6H PRN PRN Reason: INDIGESTION Last Admin: 01/19/18 07:51 Dose: 30 ml Albuterol (Ventolin 2.5 Mg/3 Ml Neb.Gerda*) 2.5 mg INH [id number] AWAKE PRN PRN Reason: sob/wheezing Albuterol (Ventolin Hfa Inhaler*) 2 puff INH Q4H PRN PRN Reason: SOB/WHEEZING Amlodipine Besylate (Norvasc Tab*) 10 mg PO DAILY [facility] Last Admin: 01/19/18 07:52 Dose: 10 mg Amoxicillin/Clavulanate Potassium (Augmentin Tab*) 875 mg PO BID [facility] Last Admin: 01/19/18 07:52 Dose: 875 mg Aspirin (Aspirin Ec Tab*) 81 mg PO DAILY [facility] Last Admin: 01/19/18 07:52 Dose: 81 mg Atorvastatin Calcium (Lipitor*) 40 mg PO DAILY [facility] Last Admin: 01/19/18 07:52 Dose: 40 mg Clonidine HCl (Catapres Tab*) 0.1 mg PO Q8H PRN PRN Reason: ANXIETY Last Admin: 01/18/18 20:14 Dose: 0.1 mg Dextrose (D50w Syringe 50 Ml*) 12.5 gm IV PUSH .FOR FS < 60 - SS PRN PRN Reason: FS < 60 Docusate Sodium (Colace Cap*) 100 mg PO BEDTIME [facility] Last Admin: 01/18/18 20:38 Dose: 100 mg Gabapentin (Neurontin Cap(*)) 900 mg PO BEDTIME [facility] Last Admin: 01/18/18 20:38 Dose: 900 mg Gabapentin (Neurontin Cap(*)) 600 mg PO 0900,1500 [facility] Last Admin: 01/19/18 08:33 Dose: 600 mg Heparin Sodium (Porcine) (Heparin Vial(*)) 5,000 units SUBCUT Q8HR [facility] Last Admin: 01/19/18 06:03 Dose: 5,000 units Hydralazine HCl (Apresoline Iv*) 5 mg IV SLOW PU Q6H PRN PRN Reason: BLOOD PRESSURE Hydroxyzine HCl (Atarax Tab*) 50 mg PO TID PRN PRN Reason: ANXIETY Last Admin: 01/19/18 07:52 Dose: 50 mg Sodium Chloride (Ns 0.9% 1000 Ml*) 1,000 mls @ 100 mls/hr IV PER RATE [facility] Last Admin: 01/19/18 03:19 Dose: 100 mls/hr Insulin Human Lispro (Humalog*) 0 units SUBCUT ACHS [facility] PRN Reason: Protocol Last Admin: 01/19/18 08:34 Dose: Not Given Magnesium Hydroxide (Milk Of Magnesia Liq*) 30 ml PO Q4H PRN PRN Reason: CONSTIPATION Methocarbamol (Robaxin Tab*) 1,500 mg PO TID PRN PRN Reason: SPASMS Morphine Sulfate (Morphine Vial*) 2 mg IV Q1H PRN PRN Reason: PAIN Last Admin: 01/18/18 20:14 Dose: 2 mg Omeprazole (Prilosec Cap*) 40 mg PO 0730 [facility] Last Admin: 01/19/18 07:51 Dose: 40 mg Ondansetron HCl (Zofran 40 Mg Vial*) 4 mg IV Q4H PRN PRN Reason: NAUSEA/VOMITING Last Admin: 01/18/18 18:14 Dose: 4 mg Polyethylene Glycol/Electrolytes (Miralax*) 17 gm PO DAILY PRN PRN Reason: CONSTIPATION Prazosin HCl (Minipress Cap*) 3 mg PO BEDTIME [facility] Last Admin: 01/18/18 20:38 Dose: 3 mg Tiotropium [place] (Spiriva Cap.Inh*) 1 cap INH DAILY [facility] Last Admin: 01/19/18 07:50 Dose: 1 cap Vital Signs - 8 hr 01/19/18 01/19/18 01/19/18 07:22 07:27 07:51 Temperature 98.5 F Pulse Rate 82 Respiratory 20 18 Rate Blood Pressure 152/75 145/90 (mmHg) O2 Sat by Pulse 98 Oximetry 01/19/18 01/19/18 01/19/18 07:52 08:33 10:30 Temperature Pulse Rate Respiratory 14 18 17 Rate Blood Pressure (mmHg) O2 Sat by Pulse Oximetry Oxygen Devices in Use Now: None Appearance: 62 yo chronically ill female laying in bed A+O in NAD Eyes: No Scleral Icterus, PERRLA Ears/Nose/Mouth/Throat: NL Teeth, Lips, Gums, Mucous Membranes Moist Neck: NL Appearance and Movements; NL JVP Respiratory: Symmetrical Chest Expansion and Respiratory Effort, Clear to Auscultation Cardiovascular: NL Sounds; No Murmurs; No JVD, RRR, No Edema Abdominal: NL Sounds; No Tenderness; No Distention, - Skin: No Rash or Ulcers, No Nodules or Sclerosis Neurological: Alert and Oriented x 3, NL Sensation, NL Muscle Strength and Tone Lines/Tubes/Other Access: Clean, Dry and Intact Peripheral IV Nutrition: Taking PO's Result Diagrams: 01/19/18 05:15 01/19/18 05:16 Additional Lab and Data: Lab Results 01/17/18 01/17/18 Range/Units 21:31 21:31 WBC 9.3 (3.5-10.8) 10^3/ul RBC 3.82 L (4.0-5.4) 10^6/ul Hgb 11.5 L (12.0-16.0) g/dl Hct 34 L (35-47) % MCV 89 (80-97) fL MCH 30 (27-31) pg MCHC 34 (31-36) g/dl RDW 15 (10.5-15) % Plt Count 336 (150-450) 10^3/ul MPV 6.7 L (7.4-10.4) um3 Neut % (Auto) 58.0 (38-83) % Lymph % (Auto) 30.0 (25-47) % [place] % (Auto) 9.6 H (0-7) % Eos % (Auto) 1.5 (0-6) % Baso % (Auto) 0.9 (0-2) % Absolute Neuts (auto) 5.4 (1.5-7.7) 10^3/ul Absolute Lymphs (auto) 2.8 (1.0-4.8) 10^3/ul Absolute Monos (auto) 0.9 H (0-0.8) 10^3/ul Absolute Eos (auto) 0.1 (0-0.6) 10^3/ul Absolute Basos (auto) 0.1 (0-0.2) 10^3/ul Absolute Nucleated RBC 0 10^3/ul Nucleated RBC % 0 Sodium 139 (139-145) mmol/L Potassium 3.4 L (3.5-5.0) mmol/L Chloride 103 (101-111) mmol/L Carbon Dioxide 26 (22-32) mmol/L Anion Gap 10 (2-11) mmol/L BUN 17 (6-24) mg/dL Creatinine 1.03 H (0.51-0.95) mg/dL Est GFR ( Amer) 69.4 (>60) Est GFR (Non-Af Amer) 53.9 (>60) BUN/Creatinine Ratio 16.5 (8-20) Glucose 151 H (70-100) mg/dL Calcium 10.0 (8.6-10.3) mg/dL Total Bilirubin 0.30 (0.2-1.0) mg/dL AST 30 (13-39) U/L ALT 31 (7-52) U/L Alkaline Phosphatase 81 (34-104) U/L Total Protein 7.1 (6.4-8.9) g/dL Albumin 3.9 (3.2-5.2) g/dL Globulin 3.2 (2-4) g/dL Albumin/Globulin Ratio 1.2 (1-3) TSH Pending Salicylates < 2.50 (<30) mg/dL Acetaminophen < 15 mcg/mL Serum Alcohol < 10 (<10) mg/dL Assess/Plan/Problems-Billing Assessment: 62 yo female with PMH of significant mental health disorder with multiple hospitalizations/psych hospitalization mostly in [facility] with dx of bipolar, borderline personality disorder, dissociative identity disorder, PTSD, cannabis use disorder, major depressive disorder, hx of pancreatitis, HTN , Tobacco abuse, DMII, GERD, Obesity, chronic constipation, cholecystectomy, hx of colon ca with sigmoid colectomy and colostomy follwed by a colostomy reversal who presented to the ED with c/o of homicidal and suicidal ideations then c/o of epigastric/chest pain admitted to medical team for chest pain r/o ACS - Patient Problems (1) Chest pain Comment: - Troponins peaked at 0.12 then trended down, suspect demand ischemia - Nuclear cardiac stress test low risk. - Supsect cardiac discomfort is possible chronic pancreatitis (2) Chronic pancreatitis Comment: - Possible chronic pancreatitis? CT showing "mild inflammatory change along the second and third stages of the duodenum and pancreatic head. The differential includes infectcious or inflammatory process of the duodenum". - Does not appear to be infectious. ER started her on Augmentin. No fevers or leukocytosis, CRP mildly elevated. Plan to start diet and see how she tolerates. If she has pain will ask for GI consult. - per patients hospitalized for pancreatitis within the year, suspect this could be chronic pancreatitis. (3) Suicidal ideation Comment: - appreciate consult by Dr.Ehmke Wilver [place] to DC 1:1, he does not feel that she is suicidal and this was secondary gain and personality disorder. Please see full dictated note for details. (4) HTN (hypertension) Comment: - continue home medications, blood pressure better controlled. Continue hydralizine prn (5) Diabetes 1.5, managed as type 2 Comment: - FSBG ACHS with lispro SS (6) DVT prophylaxis Comment: HSQ (7) Full code status Status and Disposition: OBV
[2018-01-19] MEDS: Methocarbamol TAB* 500 MG PO PRN ×2 (14:00→22:34)
[2018-01-19] MEDS: cloNIDine TAB* 0.1 MG PO PRN (14:00)
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
[2018-01-19] MEDS: Docusate CAP* 100 MG PO SCH (21:03)
[2018-01-19] MEDS: Prazosin CAP* 1 MG PO SCH (21:03)
[2018-01-20] MEDS: hydrOXYzine HCL TAB* 50 MG PO PRN ×2 (02:51→12:47)
[2018-01-20] MEDS: Acetaminophen TAB* 325 MG PO PRN (02:51)
[2018-01-20] MEDS: Heparin VIAL(*) 5000 UNITS/ML VIAL (FIVE THOUSAND) SUBCUT SCH (05:51)
[2018-01-20 06:15] LABS: ABS Basophils 0.1 10^3/ul (0-0.2); ABS Eosinophils 0.2 10^3/ul (0-0.6); ABS Lymphocytes 2.2 10^3/ul (1.0-4.8); ABS Monocytes 0.5 10^3/ul (0-0.8); ABS Neutrophils 3.6 10^3/ul (1.5-7.7); ABS Nucleated RBC 0 10^3/ul; Eosinophil % 2.7 % (0-6); Hematocrit 34 % (35-47); Hemoglobin 11.5 g/dl (12.0-16.0); Lymphocyte % 33.3 % (25-47); Mean Corpuscular HGB Conc 34 g/dl (31-36); Mean Corpuscular Hemoglobin 30 pg (27-31); Mean Corpuscular Volume 89 fL (80-97); Mean Platelet Volume 6.9 um3 (7.4-10.4); Nucleated Red Blood Cells % 0; Platelet Count 316 10^3/ul (150-450); Red Blood Count 3.85 10^6/ul (4.0-5.4); Red Cell Distribution Width 15 % (10.5-15); White Blood Count 6.5 10^3/ul (3.5-10.8)
[2018-01-20 06:29] LABS: EGFR Non-African American 76.6 (>60)
[2018-01-20] MEDS: Tiotropium CAP.INH* CAP.INH/18 MCG (USE ORDER SET !) INH SCH (08:34)
[2018-01-20] MEDS: Insulin LISPRO* 1 UNITS UNIT SUBCUT SCH (09:02)
[2018-01-20] MEDS: Aspirin EC TAB* 81 MG TAB.EC PO SCH (09:03)
[2018-01-20] MEDS: Amoxicillin/Clavulanate TAB* 875 MG PO SCH (09:03)
[2018-01-20] MEDS: amLODIPine TAB* 5 MG PO SCH (09:04)
[2018-01-20] MEDS: Omeprazole CAP* 20 MG PO SCH (09:04)
[2018-01-20] MEDS: Atorvastatin* 40 MG TAB PO SCH (09:04)
[2018-01-20] MEDS: Gabapentin CAP(*) 300 MG PO SCH (09:04)
--- NOTE | 2018-01-20 11:16 | DCNOTE ---
Subjective Date of Service: 01/20/18 Interval History: Patient reports she feels much better today and feels ready for discharge. no further epigastric pain or chest pain. reports she has a good appetite. no abdominal pain. She said she spoke with her PCP office today and plans to follow up soon. She reports she has a mental health case manager helping her set up an apartment in [place] and hopes to move to the area. Objective Active Medications: Acetaminophen (Tylenol Tab*) 650 mg PO Q4H PRN PRN Reason: FEVER/PAIN Last Admin: 01/20/18 02:51 Dose: 650 mg Al Hydrox/Mg Hydrox/Simethicone (Maalox Plus*) 30 ml PO Q6H PRN PRN Reason: INDIGESTION Last Admin: 01/19/18 07:51 Dose: 30 ml Albuterol (Ventolin 2.5 Mg/3 Ml Neb.Gerda*) 2.5 mg INH [id number] AWAKE PRN PRN Reason: sob/wheezing Albuterol (Ventolin Hfa Inhaler*) 2 puff INH Q4H PRN PRN Reason: SOB/WHEEZING Amlodipine Besylate (Norvasc Tab*) 10 mg PO DAILY [facility] Last Admin: 01/20/18 09:04 Dose: 10 mg Amoxicillin/Clavulanate Potassium (Augmentin Tab*) 875 mg PO BID [facility] Last Admin: 01/20/18 09:03 Dose: 875 mg Aspirin (Aspirin Ec Tab*) 81 mg PO DAILY [facility] Last Admin: 01/20/18 09:03 Dose: 81 mg Atorvastatin Calcium (Lipitor*) 40 mg PO DAILY [facility] Last Admin: 01/20/18 09:04 Dose: 40 mg Clonidine HCl (Catapres Tab*) 0.1 mg PO Q8H PRN PRN Reason: ANXIETY Last Admin: 01/19/18 14:00 Dose: 0.1 mg Dextrose (D50w Syringe 50 Ml*) 12.5 gm IV PUSH .FOR FS < 60 - SS PRN PRN Reason: FS < 60 Docusate Sodium (Colace Cap*) 100 mg PO BEDTIME [facility] Last Admin: 01/19/18 21:03 Dose: 100 mg Gabapentin (Neurontin Cap(*)) 900 mg PO BEDTIME [facility] Last Admin: 01/19/18 21:02 Dose: 900 mg Gabapentin (Neurontin Cap(*)) 600 mg PO 0900,1500 [facility] Last Admin: 01/20/18 09:04 Dose: 600 mg Heparin Sodium (Porcine) (Heparin Vial(*)) 5,000 units SUBCUT Q8HR [facility] Last Admin: 01/20/18 05:51 Dose: 5,000 units Hydralazine HCl (Apresoline Iv*) 5 mg IV SLOW PU Q6H PRN PRN Reason: BLOOD PRESSURE Hydroxyzine HCl (Atarax Tab*) 50 mg PO TID PRN PRN Reason: ANXIETY Last Admin: 01/20/18 02:51 Dose: 50 mg Insulin Human Lispro (Humalog*) 0 units SUBCUT ACHS [facility] PRN Reason: Protocol Last Admin: 01/20/18 09:02 Dose: 2 units Magnesium Hydroxide (Milk Of Magnesia Liq*) 30 ml PO Q4H PRN PRN Reason: CONSTIPATION Methocarbamol (Robaxin Tab*) 1,500 mg PO TID PRN PRN Reason: SPASMS Last Admin: 01/19/18 22:34 Dose: 1,500 mg Morphine Sulfate (Morphine Vial*) 2 mg IV Q1H PRN PRN Reason: PAIN Last Admin: 01/18/18 20:14 Dose: 2 mg Omeprazole (Prilosec Cap*) 40 mg PO 0730 [facility] Last Admin: 01/20/18 09:04 Dose: 40 mg Ondansetron HCl (Zofran 40 Mg Vial*) 4 mg IV Q4H PRN PRN Reason: NAUSEA/VOMITING Last Admin: 01/18/18 18:14 Dose: 4 mg Polyethylene Glycol/Electrolytes (Miralax*) 17 gm PO DAILY PRN PRN Reason: CONSTIPATION Prazosin HCl (Minipress Cap*) 3 mg PO BEDTIME [facility] Last Admin: 01/19/18 21:03 Dose: 3 mg Tiotropium [place] (Spiriva Cap.Inh*) 1 cap INH DAILY [facility] Last Admin: 01/20/18 08:34 Dose: 1 cap Vital Signs - 8 hr 01/20/18 01/20/18 01/20/18 03:58 07:23 08:36 Temperature 98.0 F 98.3 F Pulse Rate 90 80 97 Respiratory 18 16 16 Rate Blood Pressure 143/83 146/82 (mmHg) O2 Sat by Pulse 95 99 98 Oximetry 01/20/18 09:04 Temperature Pulse Rate Respiratory 18 Rate Blood Pressure (mmHg) O2 Sat by Pulse Oximetry Oxygen Devices in Use Now: None Appearance: 62 yo female A+O x3 in NAD. appropriate Eyes: No Scleral Icterus, PERRLA Ears/Nose/Mouth/Throat: NL Teeth, Lips, Gums, Mucous Membranes Moist Neck: NL Appearance and Movements; NL JVP Respiratory: Symmetrical Chest Expansion and Respiratory Effort, Clear to Auscultation Cardiovascular: NL Sounds; No Murmurs; No JVD, RRR, No Edema Abdominal: NL Sounds; No Tenderness; No Distention Extremities: No Edema, No Clubbing, Cyanosis Skin: No Rash or Ulcers, No Nodules or Sclerosis Neurological: Alert and Oriented x 3, NL Sensation, NL Gait, NL Muscle Strength and Tone Lines/Tubes/Other Access: Clean, Dry and Intact Peripheral IV Nutrition: Taking PO's Result Diagrams: 01/20/18 06:01 01/20/18 06:01 Additional Lab and Data: Lab Results 01/17/18 01/17/18 Range/Units 21:31 21:31 WBC 9.3 (3.5-10.8) 10^3/ul RBC 3.82 L (4.0-5.4) 10^6/ul Hgb 11.5 L (12.0-16.0) g/dl Hct 34 L (35-47) % MCV 89 (80-97) fL MCH 30 (27-31) pg MCHC 34 (31-36) g/dl RDW 15 (10.5-15) % Plt Count 336 (150-450) 10^3/ul MPV 6.7 L (7.4-10.4) um3 Neut % (Auto) 58.0 (38-83) % Lymph % (Auto) 30.0 (25-47) % Sampson % (Auto) 9.6 H (0-7) % Eos % (Auto) 1.5 (0-6) % Baso % (Auto) 0.9 (0-2) % Absolute Neuts (auto) 5.4 (1.5-7.7) 10^3/ul Absolute Lymphs (auto) 2.8 (1.0-4.8) 10^3/ul Absolute Monos (auto) 0.9 H (0-0.8) 10^3/ul Absolute Eos (auto) 0.1 (0-0.6) 10^3/ul Absolute Basos (auto) 0.1 (0-0.2) 10^3/ul Absolute Nucleated RBC 0 10^3/ul Nucleated RBC % 0 Sodium 139 (139-145) mmol/L Potassium 3.4 L (3.5-5.0) mmol/L Chloride 103 (101-111) mmol/L Carbon Dioxide 26 (22-32) mmol/L Anion Gap 10 (2-11) mmol/L BUN 17 (6-24) mg/dL Creatinine 1.03 H (0.51-0.95) mg/dL Est GFR ( Amer) 69.4 (>60) Est GFR (Non-Af Amer) 53.9 (>60) BUN/Creatinine Ratio 16.5 (8-20) Glucose 151 H (70-100) mg/dL Calcium 10.0 (8.6-10.3) mg/dL Total Bilirubin 0.30 (0.2-1.0) mg/dL AST 30 (13-39) U/L ALT 31 (7-52) U/L Alkaline Phosphatase 81 (34-104) U/L Total Protein 7.1 (6.4-8.9) g/dL Albumin 3.9 (3.2-5.2) g/dL Globulin 3.2 (2-4) g/dL Albumin/Globulin Ratio 1.2 (1-3) TSH Pending Salicylates < 2.50 (<30) mg/dL Acetaminophen < 15 mcg/mL Serum Alcohol < 10 (<10) mg/dL Microbiology and Other Data: Microbiology 01/19/18 15:10 Stool Occult Blood (ZAINA) - Final Stool Assess/Plan/Problems-Billing Assessment: 62 yo female with PMH of significant mental health disorder with multiple hospitalizations/psych hospitalization mostly in [facility] with dx of bipolar, borderline personality disorder, dissociative identity disorder, PTSD, cannabis use disorder, major depressive disorder, hx of pancreatitis, HTN , Tobacco abuse, DMII, GERD, Obesity, chronic constipation, cholecystectomy, hx of colon ca with sigmoid colectomy and colostomy follwed by a colostomy reversal who presented to the ED with c/o of homicidal and suicidal ideations then c/o of epigastric/chest pain admitted to medical team for chest pain r/o ACS - Patient Problems (1) Chest pain Comment: - Troponins peaked at 0.12 then trended down, suspect demand ischemia - Nuclear cardiac stress test low risk. - Supsect cardiac discomfort is possible chronic pancreatitis (2) Chronic pancreatitis Comment: - Possible chronic pancreatitis? CT showing "mild inflammatory change along the second and third stages of the duodenum and pancreatic head. The differential includes infectcious or inflammatory process of the duodenum". - Does not appear to be infectious. ER started her on Augmentin. No fevers or leukocytosis, CRP mildly elevated. Tolerating diet well. Side consulted GI - with no abdominal pain and tolerating PO less likely duodenitis. Augmentin not recommended. Possible chronic pancreatitis. No pain today and tolerating diet well. I discussed with her [facility]. - per patients hospitalized for pancreatitis within the year. Distant hx of ETOH abuse 30+ years ago - (3) Suicidal ideation Comment: - appreciate consult by - ok to DC 1:1, he does not feel that she is suicidal and this was secondary gain and personality disorder. Please see full dictated note for details. (4) HTN (hypertension) Comment: - continue home medications, blood pressure better controlled. (5) Diabetes 1.5, managed as type 2 Comment: - restart home meds on DC (6) DVT prophylaxis Comment: HSQ (7) Full code status Status and Disposition: OBV. Plan for DC to home today with f/u with [facility]
[2018-01-20 12:08] VITALS: BP 146/80
--- NOTE | 2018-01-20 13:24 | CONSULT ---
Identification - Patient Identification Reason for Psychiatric Consultation: Suicidal Ideation -: Patient is a 62 year old, F admitted on 01/18/18. - MHU Identification Employment Status: Disabled Hx Psychiatric Hospitalization: Yes History - Objective HPI: Gena is seen for follow up today and is in good spirits, looking to go home to [place]. She continues to deny SI or HI and has no acute complaints. She is getting a ride home from her friend Priya and says that she is going to have her [facility] case consultant assist her in finding an apartment in [place], because "The hospital is so much better here." Lab Results: Laboratory Tests 01/18/18 01/18/18 01/18/18 17:09 18:18 20:02 WBC RBC Hgb Hct MCV MCH MCHC RDW Plt Count MPV Neut % (Auto) Lymph % (Auto) [place] % (Auto) Eos % (Auto) Baso % (Auto) Absolute Neuts (auto) Absolute Lymphs (auto) Absolute Monos (auto) Absolute Eos (auto) Absolute Basos (auto) Absolute Nucleated RBC Nucleated RBC % Sodium Potassium Chloride Carbon Dioxide Anion Gap BUN Creatinine Est GFR ( Amer) Est GFR (Non-Af Amer) BUN/Creatinine Ratio Glucose POC Glucose (mg/dL) 262 H 200 H Calcium Troponin I 0.00 C-Reactive Protein Triglycerides Cholesterol LDL Cholesterol HDL Cholesterol Lipase 01/19/18 01/19/18 01/19/18 05:15 05:16 07:25 WBC 7.9 RBC 3.75 L Hgb 11.3 L Hct 33 L MCV 89 MCH 30 MCHC 34 RDW 15 Plt Count 315 MPV 7.0 L Neut % (Auto) 62.7 Lymph % (Auto) 26.6 [place] % (Auto) 9.2 H Eos % (Auto) 1.1 Baso % (Auto) 0.4 Absolute Neuts (auto) 5.0 Absolute Lymphs (auto) 2.1 Absolute Monos (auto) 0.7 Absolute Eos (auto) 0.1 Absolute Basos (auto) 0 Absolute Nucleated RBC 0 Nucleated RBC % 0.1 Sodium 137 L Potassium 3.0 L Chloride 107 Carbon Dioxide 22 Anion Gap 8 BUN 12 Creatinine 0.62 Est GFR ( Amer) 124.6 Est GFR (Non-Af Amer) 96.9 BUN/Creatinine Ratio 19.4 Glucose 132 H POC Glucose (mg/dL) 143 H Calcium 8.1 L Troponin I 0.00 C-Reactive Protein Triglycerides 182 Cholesterol 109 LDL Cholesterol 36 HDL Cholesterol 36.8 Lipase 01/19/18 01/19/18 01/19/18 11:43 16:28 20:16 WBC RBC Hgb Hct MCV MCH MCHC RDW Plt Count MPV Neut % (Auto) Lymph % (Auto) [place] % (Auto) Eos % (Auto) Baso % (Auto) Absolute Neuts (auto) Absolute Lymphs (auto) Absolute Monos (auto) Absolute Eos (auto) Absolute Basos (auto) Absolute Nucleated RBC Nucleated RBC % Sodium Potassium Chloride Carbon Dioxide Anion Gap BUN Creatinine Est GFR ( Amer) Est GFR (Non-Af Amer) BUN/Creatinine Ratio Glucose POC Glucose (mg/dL) 143 H 139 H 130 H Calcium Troponin I C-Reactive Protein Triglycerides Cholesterol LDL Cholesterol HDL Cholesterol Lipase 01/20/18 01/20/18 01/20/18 06:01 06:01 07:56 WBC 6.5 RBC 3.85 L Hgb 11.5 L Hct 34 L MCV 89 MCH 30 MCHC 34 RDW 15 Plt Count 316 MPV 6.9 L Neut % (Auto) 54.8 Lymph % (Auto) 33.3 [place] % (Auto) 8.1 H Eos % (Auto) 2.7 Baso % (Auto) 1.1 Absolute Neuts (auto) 3.6 Absolute Lymphs (auto) 2.2 Absolute Monos (auto) 0.5 Absolute Eos (auto) 0.2 Absolute Basos (auto) 0.1 Absolute Nucleated RBC 0 Nucleated RBC % 0 Sodium 138 L Potassium 3.9 Chloride 108 Carbon Dioxide 21 L Anion Gap 9 BUN 20 Creatinine 0.76 Est GFR ( Amer) 98.5 Est GFR (Non-Af Amer) 76.6 BUN/Creatinine Ratio 26.3 H Glucose 173 H POC Glucose (mg/dL) 153 H Calcium 8.8 Troponin I C-Reactive Protein 17.83 H Triglycerides Cholesterol LDL Cholesterol HDL Cholesterol Lipase 101 H 01/20/18 11:06 WBC RBC Hgb Hct MCV MCH MCHC RDW Plt Count MPV Neut % (Auto) Lymph % (Auto) [place] % (Auto) Eos % (Auto) Baso % (Auto) Absolute Neuts (auto) Absolute Lymphs (auto) Absolute Monos (auto) Absolute Eos (auto) Absolute Basos (auto) Absolute Nucleated RBC Nucleated RBC % Sodium Potassium Chloride Carbon Dioxide Anion Gap BUN Creatinine Est GFR ( Amer) Est GFR (Non-Af Amer) BUN/Creatinine Ratio Glucose POC Glucose (mg/dL) 131 H Calcium Troponin I C-Reactive Protein Triglycerides Cholesterol LDL Cholesterol HDL Cholesterol Lipase Exam Appearance: Well Developed/Nourished Hygiene: Normal Grooming: Well Kept Psychomotor Activities: Normal Exhibits Abnormal Movement: No Attitude and Relatedness: Cooperative Eye Contact: Good - Speech Quality: Unpressured Latencies: Normal Quantity: Appropriate Patient's Decription of Mood: "Good" Observed Affect: Good Affect Consistent with: Euthymia Patient's Thought Process: Coherent Thought Content: No Passive Wish, No Suicidal Planning, No Homicidal Ideation, No Paranoid Ideation Experiencing Hallucinations: No, Sensorium is Clear Type of Hallucinations: Visual: No, Auditory: No, Command: No Level of Consciousness: Alert Orientation: Yes Intact, Yes Orientated to Time, Yes Orientated to Place, Yes Orientated to Person Impulse Control: Tenuous Insight and Judgement: Fair Impression - Impression Clinical Impression: 62 y.o. , white female [employer] with a myriad of previous psychiatric diagnoses admitted to medicine for chest pain and elevated troponins who voiced HI and SI enroute to the hospital. Inpatient DSM-V Dx: F60.3 Merits Inpatient Hospitalization: No Problem List - MHU Problems Type of Problem: Affect Status of Problem: Resolved Plan - Treatment Plan Treatment Plan: The patient is neither suicidal nor homicidal and warrants continued outpatient psychiatric follow up through the [place] system in [place], [place]. We have continued her gabapentin and prazosin. Patient to be discharged home today. Psychiatry is signing off. Thank you for allowing us to participate in the care of this patient. Continued Medication Management: Continue Outpt Medication Medications: Current Medications Acetaminophen (Tylenol Tab*) 650 mg PO Q4H PRN PRN Reason: FEVER/PAIN Last Admin: 01/20/18 02:51 Dose: 650 mg Al Hydrox/Mg Hydrox/Simethicone (Maalox Plus*) 30 ml PO Q6H PRN PRN Reason: INDIGESTION Last Admin: 01/19/18 07:51 Dose: 30 ml Albuterol (Ventolin 2.5 Mg/3 Ml Neb.Gerda*) 2.5 mg INH [id number] AWAKE PRN PRN Reason: sob/wheezing Albuterol (Ventolin Hfa Inhaler*) 2 puff INH Q4H PRN PRN Reason: SOB/WHEEZING Amlodipine Besylate (Norvasc Tab*) 10 mg PO DAILY [facility] Last Admin: 01/20/18 09:04 Dose: 10 mg Amoxicillin/Clavulanate Potassium (Augmentin Tab*) 875 mg PO BID [facility] Last Admin: 01/20/18 09:03 Dose: 875 mg Aspirin (Aspirin Ec Tab*) 81 mg PO DAILY [facility] Last Admin: 01/20/18 09:03 Dose: 81 mg Atorvastatin Calcium (Lipitor*) 40 mg PO DAILY [facility] Last Admin: 01/20/18 09:04 Dose: 40 mg Clonidine HCl (Catapres Tab*) 0.1 mg PO Q8H PRN PRN Reason: ANXIETY Last Admin: 01/19/18 14:00 Dose: 0.1 mg Dextrose (D50w Syringe 50 Ml*) 12.5 gm IV PUSH .FOR FS < 60 - SS PRN PRN Reason: FS < 60 Docusate Sodium (Colace Cap*) 100 mg PO BEDTIME [facility] Last Admin: 01/19/18 21:03 Dose: 100 mg Gabapentin (Neurontin Cap(*)) 900 mg PO BEDTIME [facility] Last Admin: 01/19/18 21:02 Dose: 900 mg Gabapentin (Neurontin Cap(*)) 600 mg PO 0900,1500 [facility] Last Admin: 01/20/18 09:04 Dose: 600 mg Heparin Sodium (Porcine) (Heparin Vial(*)) 5,000 units SUBCUT Q8HR [facility] Last Admin: 01/20/18 05:51 Dose: 5,000 units Hydralazine HCl (Apresoline Iv*) 5 mg IV SLOW PU Q6H PRN PRN Reason: BLOOD PRESSURE Hydroxyzine HCl (Atarax Tab*) 50 mg PO TID PRN PRN Reason: ANXIETY Last Admin: 01/20/18 12:47 Dose: 50 mg Insulin Human Lispro (Humalog*) 0 units SUBCUT ACHS [facility] PRN Reason: Protocol Last Admin: 01/20/18 09:02 Dose: 2 units Magnesium Hydroxide (Milk Of Magnesia Liq*) 30 ml PO Q4H PRN PRN Reason: CONSTIPATION Methocarbamol (Robaxin Tab*) 1,500 mg PO TID PRN PRN Reason: SPASMS Last Admin: 01/19/18 22:34 Dose: 1,500 mg Morphine Sulfate (Morphine Vial*) 2 mg IV Q1H PRN PRN Reason: PAIN Last Admin: 01/18/18 20:14 Dose: 2 mg Omeprazole (Prilosec Cap*) 40 mg PO 0730 [facility] Last Admin: 01/20/18 09:04 Dose: 40 mg Ondansetron HCl (Zofran 40 Mg Vial*) 4 mg IV Q4H PRN PRN Reason: NAUSEA/VOMITING Last Admin: 01/18/18 18:14 Dose: 4 mg Polyethylene Glycol/Electrolytes (Miralax*) 17 gm PO DAILY PRN PRN Reason: CONSTIPATION Prazosin HCl (Minipress Cap*) 3 mg PO BEDTIME [facility] Last Admin: 01/19/18 21:03 Dose: 3 mg Tiotropium Questa (Spiriva Cap.Inh*) 1 cap INH DAILY [facility] Last Admin: 01/20/18 08:34 Dose: 1 cap - Discharge Plan Discharge Plan: Outpatient Follow Up [facility] [place]
--- NOTE | 2018-01-21 09:17 | DS ---
CC: Dr. Galen Washington * DISCHARGE SUMMARY: DATE OF ADMISSION: 01/18/18 DATE OF DISCHARGE: 01/20/18 PROVIDER: Asha Britt NP ATTENDING PHYSICIAN: Dr. Marvin * (report dictated by Asha Britt NP) PRIMARY CARE PROVIDER: Dr. Galen [facility] in [facility]. DISCHARGE DIAGNOSES: 1. Chest pain, unclear etiology. 2. Personality disorder. 3. Possible chronic pancreatitis. SECONDARY DIAGNOSES: 1. Hypertension. 2. Chronic obstructive pulmonary disease. 3. Anxiety. 4. Depression. 5. Type 2 diabetes. 6. Gastroesophageal reflux disease. 7. Obesity. 8. Chronic constipation, status post cholecystectomy. 9. History of colon cancer in which she had a sigmoid colectomy with colostomy , then followed by a colostomy reversal. 10. Personality disorder with multiple psychiatric admissions. 11. Posttraumatic stress disorder. 12. Dissociative identity disorder. 13. Cannabis use disorder. 14. Bipolar. 15. Major depressive disorder. HISTORY OF PRESENT ILLNESS AND HOSPITAL COURSE: Please see history and physical by Caesar Escobar, for full admission details, but in summary this is a 62-year-old female who holds a past medical history, a significant history of psych disorders, who presented to the emergency department with complaints of suicidal ideation. The patient reported that she was going to shoot her neighbor in the foot and then straight to the heart, and then threaten to hurt herself. She was evaluated in the emergency department initially by the psychiatric team, however, in the emergency department she complained of chest pain, and it was noted on admission her initial troponin was 0.01 when she had the complaint of chest pain, second troponin was drawn, which was noted to be 0.12 and Hospital Medicine was asked to evaluate her for admission. She was admitted to the hospitalist service, monitored on the telemetry unit. Her troponins were trended with the third troponin being 0.00. I suspect that the second elevated troponin was possibly an error. She had no noted arrhythmias on telemetry. She underwent a cardiac nuclear stress test which placed her at low risk showing no evidence for stress-induced myocardial ischemia or presence of an infarct. Also, she had noted normal left ventricular wall motion and ejection fraction. The patient also underwent a chest thorax CTA in the emergency department, which showed no evidence of thoracic aortic dissection and aneurysmal dilatation. The left subclavian artery was widely patent. No pulmonary embolus was noted. Yesterday was the first day I met and rounded on the patient. She denied having any further chest pain. She did report some intermittent colicky upper abdominal/epigastric discomfort, which she states that she was hospitalized for pancreatitis within the last year. On admission, she was noted to have lipase of 140, which has trended down. No noted elevated LFTs. She did have an abdominal pelvis CT scan on admission which did show "1. Mild inflammatory change along the second and third stages of duodenum and pancreatic head. The differential includes primary infectious or inflammatory process of the duodenum , though early pancreatitis may give the similar appearance. 2. Hepatomegaly with fatty infiltration of the liver." On exam yesterday and today, the patient had no noted tenderness. Today, the patient has been tolerating food well without any complaints of abdominal pain. I do note, looking back at the emergency room notes, that the initial ER provider thought she had a duodenitis and started her on Augmentin. I side-consulted and discussed with our GI team, who has low suspicion for duodenitis with no abdominal pain and does not recommend Augmentin. I will go ahead and discontinue this at this time. It is possible though that she has some chronic pancreatitis and I discussed this with the patient that she should follow up with her primary care provider within the next 3 to 5 days and follow up with a [place] weight loss counselor. Please note, she has had no leukocytosis throughout her hospitalization. She has a mildly elevated CRP of 17 and has remained afebrile. No signs of sepsis throughout her hospitalization. I did again stress to the patient for close followup in the [place] system. The patient was seen by Dr. Nuno, psychiatrist, who did evaluate the patient for her expressing homicidal and suicidal ideations at time of admission. She was seen and evaluated on 01/19/[address] Nuno, who reports the patient is denying further suicidal or homicidal ideations and he discussed with her primary psychiatrist at the [place] and his impression is that her current presentation is one of borderline personality disorder, and did not recommend acute psychiatric hospitalization at this time. He does state that there appears to be an element of secondary gain given the fact that she would like to move to the [facility] and seeking hospital support in doing so. The patient denies suicidal ideation at this time. Again, I discussed with the patient, I encouraged her to follow up with her primary care provider and her psychiatrist within 1 week and again evaluation by weight loss counselor. Today, on discharge, the patient reports that she feels stable for discharge to home. She is agreeing to the discharge at this time. She plans to follow up with her [facility] provider within the next week. DISCHARGE MEDICATIONS: 1. Gabapentin 600 mg p.o. twice daily with 900 mg p.o. at bedtime. 2. Vitamin D 50,000 units weekly. 3. Colace 100 mg p.o. at bedtime. 4. Catapres 0.1 mg p.o. q.8 hours p.r.n. 5. Calcium 1 tab p.o. daily. 6. Norvasc 10 mg p.o. daily. 7. Lipitor 40 mg p.o. daily. 8. Aspirin 81 mg p.o. daily. 9. Albuterol HFA inhaler 2 puffs INH q.4 hours p.r.n. 10. Acetaminophen 650 mg p.o. q.4 hours p.r.n. 11. Spiriva 1 cap INH daily. 12. Zantac 150 mg p.o. bedtime. 13. [place] 3 fatty acids 1000 mg p.o. b.i.d. 14. Minipress 2 mg p.o. at bedtime. 15. MiraLAX 17 g p.o. daily p.r.n. 16. Omeprazole 40 mg p.o. q.a.m. 17. Robaxin 1500 mg p.o. t.i.d. p.r.n. 18. Atarax 50 mg p.o. t.i.d. p.r.n., max daily dose 3 tabs. 19. Glipizide 20 mg p.o. b.i.d. DISCHARGE PLAN: 1. Follow up with primary care provider within 1 week as stated above. Discussed with the patient, it should be considered referral to weight loss counselor unless the patient has already had this workup, then she can just follow with her primary. Recommendation to follow up lab work due to the noted mildly abnormal lipase. Again, she has no abdominal pain and tolerating her diet well. It is possible she may benefit from some pancreatitis enzymes, but we will defer this to her primary. 2. Follow up with behavioral health services. The patient reports that she already has a plan to follow up this week. 3. The patient is stable for discharge to home. TIME SPENT: Approximately 60 minutes was spent on this discharge. ASHA BRITT, VETERIN[employer] P[employer]LTRY INSPECTOR [id number]/CPS #: [id number] KATERINE
== END 2018-01-20 13:10 | disposition home or self-care (01) ==
LOC: ED 20:52 → MEDTELE 01-18 15:47
PROVIDERS: ADMIT Internal Medicine; ATTEND Internal Medicine
DX: R07.9 Chest pain, unspecified (principal); F60.9 Personality disorder, unspecified; I10 Essential (primary) hypertension; J44.9 Chronic obstructive pulmonary disease, unspecified; F32.9 Major depressive disorder, single episode, unspecified; E11.9 Type 2 diabetes mellitus without complications; K21.9 Gastro-esophageal reflux disease without esophagitis; E66.9 Obesity, unspecified; K59.00 Constipation, unspecified; Z90.49 Acquired absence of other specified parts of digestive tract; Z85.038 Personal history of other malignant neoplasm of large intestine; F43.10 Post-traumatic stress disorder, unspecified; F12.10 Cannabis abuse, uncomplicated; F31.9 Bipolar disorder, unspecified; Z79.82 Long term (current) use of aspirin
CPT/HCPCS: 36415; 71045; 71275; 74176; 78452; 80048; 80053; 80061; 80307; 80320; 80329; 81003; 82150; 82272; 83605; 83690; 83735; 84443; 84484; 85025; 85379; 85610; 85730; 86140; 93005; 93017; 94640; 96374; 96375; 99284; A9270-GY; A9502; G0378; G0480; J1644; J2060; J2270; J2785; Q9967